=== PATIENT | male | born 1955 | race Two or more races ===

== ENCOUNTER 2021-04-05 04:56 | Day surgery (SDC) | payer OTHER ==
[2021-04-05 09:59] VITALS: TEMP 97.7
[2021-04-05 10:58] VITALS: BP 124/81; PULSE 96
== END 2021-04-05 10:58 | disposition home or self-care (01) ==
LOC: JASU-ENDO 04:56
PROVIDERS: ATTEND Internal Medicine Gastroenterology
PROC: 0DB68ZX Excision of Stomach, Via Natural or Artificial Opening Endoscopic, Diagnostic (ICD-10-PCS; principal; 2021-04-05 09:44)
DX: K29.50 Unspecified chronic gastritis without bleeding (principal); K44.9 Diaphragmatic hernia without obstruction or gangrene; Z98.84 Bariatric surgery status
CPT/HCPCS: 88305-TC; 88342-TC

== ENCOUNTER 2021-04-12 05:07 | Day surgery (SDC) | payer OTHER ==
[2021-04-11 08:16] VITALS: BMI 53.6
[2021-04-12 11:17] VITALS: TEMP 97.5
[2021-04-12 12:00] VITALS: BP 137/82; PULSE 69
== END 2021-04-12 12:12 | disposition home or self-care (01) ==
LOC: JASU-ENDO 05:07
PROVIDERS: ATTEND Internal Medicine Gastroenterology
PROC: 0DJD8ZZ Inspection of Lower Intestinal Tract, Via Natural or Artificial Opening Endoscopic (ICD-10-PCS; principal; 2021-04-12 10:15)
DX: Z12.11 Encounter for screening for malignant neoplasm of colon (principal); K57.30 Diverticulosis of large intestine without perforation or abscess without bleeding; K64.8 Other hemorrhoids; K62.7 Radiation proctitis; Z85.46 Personal history of malignant neoplasm of prostate

== ENCOUNTER 2023-01-23 14:05 | Emergency (ER) | payer OTHER ==
[2023-01-23 14:30] VITALS: BMI 47.8
[2023-01-23 16:41] LABS: BASO % 0.8 % (0-2.0); EOS % 2.3 % (0-4.5); HEMOGLOBIN 10.2 GM/dL (11.7-16.9); LYMPH % 12.3 % (8-40); MCH 24.8 pg (25.7-33.7); MCHC 32.8 g/dl (32.0-35.9); MEAN CELL VOLUME 75.7 fl (80-96); MEAN PLT VOLUME 6.5 fl (7.5-11.1); MONO % 9.3 % (3.8-10.2); NEUT % 75.3 % (42.8-82.8); PLATELET COUNT 366 10^3/uL (134-434); RBC 4.09 M/mm3 (4.00-5.60); RDW 16.6 % (11.9-15.9); WHITE BLOOD COUNT 8.5 K/mm3 (4.0-10.0)
[2023-01-23 17:01] LABS: POTASSIUM 3.9 mmol/L (3.5-5.1)
[2023-01-23 17:03] LABS: CALCIUM 8.8 mg/dL (8.5-10.1)
[2023-01-23 17:04] LABS: ALBUMIN 2.9 g/dl (3.4-5.0); BLOOD UREA NITROGEN 14.4 mg/dL (7-18)
[2023-01-23 17:07] LABS: CREATININE 0.6 mg/dL (0.55-1.3)
[2023-01-23 17:08] LABS: BILIRUBIN,TOTAL 0.2 mg/dL (0.2-1)
[2023-01-23 17:12] LABS: N-TERMINAL BNP 124.2 pg/ml (5-125)
[2023-01-23 18:48] VITALS: PULSE 66
[2023-01-23 19:59] VITALS: BP 108/64; RESP 19; TEMP 97.4
== END 2023-01-23 20:30 | disposition home or self-care (01) ==
LOC: JER 14:05
DX: R60.0 Localized edema (principal); M79.89 Other specified soft tissue disorders; R06.02 Shortness of breath; M79.669 Pain in unspecified lower leg
CPT/HCPCS: 36415; 71045-TC-FY; 80053; 83880; 84484; 85025; 93005; 93010; 93970-TC; 99285-25

== ENCOUNTER 2024-02-20 12:51 | Day surgery (SDC) | payer OTHER ==
[2024-02-20] MEDS ORDERED: ACETAMINOPHEN INJECTION 100 ML ONE ×2 (15:01→22:16)
[2024-02-20 15:04] LABS: BASO % 0.4 % (0-2.0); EOS % 0.4 % (0-4.5); HEMATOCRIT 39.3 % (35.4-49); LYMPH % 3.8 % (8-40); MCH 28.8 pg (25.7-33.7); MCHC 33.1 g/dl (32.0-35.9); MEAN CELL VOLUME 87.1 fl (80-96); MONO % 5.8 % (3.8-10.2); NEUT % 89.6 % (42.8-82.8); PLATELET COUNT 369 10^3/uL (134-434); RBC 4.51 M/mm3 (4.00-5.60); RDW 14.8 % (11.9-15.9); WHITE BLOOD COUNT 15.3 K/mm3 (4.0-10.0)
[2024-02-20] MEDS: ACETAMINOPHEN 1000 MG/100 ML BAG IVPB ONE (15:07)
[2024-02-20] MEDS: SODIUM CHLORIDE 1,000 ML IV STA (15:07)
[2024-02-20 15:39] LABS: POTASSIUM 4.2 mmol/L (3.5-5.1)
[2024-02-20 15:41] LABS: ALBUMIN 3.3 g/dl (3.4-5.0); BLOOD UREA NITROGEN 13.8 mg/dL (7-18); CALCIUM 9.6 mg/dL (8.5-10.1)
[2024-02-20 15:44] LABS: CREATININE 0.6 mg/dL (0.55-1.3)
[2024-02-20 15:46] LABS: BILIRUBIN,TOTAL 0.5 mg/dL (0.2-1); TOT PROT 6.8 g/dl (6.4-8.2)
[2024-02-20 16:12] LABS: URINE APPEARANCE CLOUDY; URINE BILIRUBIN NEGATIVE (NEGATIVE); URINE COLOR DK YELLOW; URINE GLUCOSE (UA) NEGATIVE (NEGATIVE); URINE KETONE NEGATIVE (NEGATIVE); URINE LEUK ESTERASE NEGATIVE (NEGATIVE); URINE NITRITE NEGATIVE (NEGATIVE); URINE PROTEIN NEGATIVE (NEGATIVE)
[2024-02-20] MEDS ORDERED: MAG HYDROX/AL HYDROX/SIMETH 30 ML UNIT-DOSE CUP ONE (19:41)
[2024-02-20] MEDS ORDERED: FAMOTIDINE 20 MG/50 ML IVPB 20 MG/50 ML MG IVPB ONE (19:41)
[2024-02-20] MEDS ORDERED: morphine SULFATE 4 MG/ML VIAL ONE (19:41)
[2024-02-20] MEDS: MAG HYDROX/AL HYDROX/SIMETH 30 ML UNIT-DOSE CUP PO ONE (19:45)
[2024-02-20] MEDS: FAMOTIDINE 20 MG/50 ML IVPB 20 MG/50 ML MG IVPB ONE (19:45)
[2024-02-20] MEDS: morphine CARPU-JECT 4 MG/1 ML DISP.SYRIN IVPUSH ONE (19:45)
[2024-02-20] MEDS ORDERED: PIPERACILLIN/TAZOB 4.5 GM 4.5 GM/100 ML BAG IVPB ONE (20:26)
[2024-02-20] MEDS: LACTATED RINGERS SOLUTION 1000 ML INFUS.BAG IV ONE (20:45)
[2024-02-20] MEDS: PIPERACILLIN/TAZOB 4.5 GM 4.5 GM in DEXTROSE 5%-WATER 100 ML IVPB ONE (20:45)
[2024-02-20] MEDS ORDERED: DOCUSATE SODIUM 100 MG CAPSULE (FP) PO PRN (21:10)
[2024-02-20] MEDS ORDERED: ONDANSETRON 4 MG/2 ML VIAL IVPUSH PRN (21:10)
[2024-02-20] MEDS ORDERED: MORPHINE SULFATE 2 MG/ML SYRINGE IVPUSH PRN (21:10)
[2024-02-20 21:22] LABS: INR 1.04 (0.83-1.09); PROTHROMBIN TIME (PATIENT) 11.7 SEC (9.7-13.0)
[2024-02-20 21:25] LABS: ACTIVATED PTT 33.1 SECONDS (25.2-36.5)
[2024-02-20] MEDS ORDERED: traMADol HCL 50 MG TABLET PO PRN (22:17)
[2024-02-20] MEDS: ACETAMINOPHEN 1000 MG/100 ML BAG IVPB SCH (22:22)
[2024-02-20] MEDS: INSULIN ASPART SLIDING SCALE (NOVOLOG) 1 VIAL SQ SCH (22:23)
[2024-02-20] MEDS ORDERED: morphine SULFATE 4 MG/ML VIAL IVPUSH PRN (22:39)
[2024-02-20] MEDS: SODIUM CHLORIDE 0.45% 1,000 ML IV SCH (23:58)
[2024-02-21] MEDS: PIPERACILLIN/TAZOB 4.5 GM 4.5 GM in DEXTROSE 5%-WATER 100 ML IVPB ONE (04:22)
[2024-02-21] MEDS: LEVOTHYROXINE NA 125 MCG TABLET (FP) PO SCH (06:16)
[2024-02-21] MEDS: TAMSULOSIN HCL 0.4 MG CAP PO SCH (08:17)
[2024-02-21] MEDS ORDERED: BUPIVACAINE HCL/PF 0.5% (5MG/ML) 10 ML VIAL ONE (08:41)
[2024-02-21] MEDS ORDERED: ROCURONIUM BROMIDE 50 MG/5 ML SYRINGE ONE (09:02)
[2024-02-21] MEDS ORDERED: PROPOFOL 20 ML ONE ×2 (09:02→09:46)
[2024-02-21] MEDS ORDERED: ONDANSETRON 4 MG/2 ML VIAL ONE (09:02)
[2024-02-21] MEDS ORDERED: LIDOCAINE HCL/PF 2% SDV 5ML VIAL ONE (09:02)
[2024-02-21] MEDS ORDERED: DEXAMETHASONE SOD PHOSPHATE 4 MG/1 ML VIAL ONE (09:02)
[2024-02-21] MEDS ORDERED: MIDAZOLAM HCL 2 MG/2 ML SINGLE DOSE VIAL ONE (09:03)
[2024-02-21] MEDS ORDERED: oxyCODONE HCL 5 MG TABLET PO PRN ×4 (09:23→11:25)
[2024-02-21] MEDS ORDERED: FENTANYL CITRATE/PF 50 MCG/ML VIAL IVPUSH PRN ×2 (09:23→11:25)
[2024-02-21] MEDS ORDERED: SEVOFLURANE 250 ML BTL ONE (09:33)
[2024-02-21] MEDS ORDERED: PIPERACILLIN/TAZOBACTAM 3.375 GM VIAL IVPB ONE (09:51)
[2024-02-21] MEDS: PIPERACILLIN/TAZOBACTAM 3.375 GM VIAL IVPB ONE (10:02)
[2024-02-21] MEDS: FERROUS SO4 325 MG TABLET (FP) PO SCH (10:04)
[2024-02-21] MEDS: BUMETANIDE 1 MG TABLET PO SCH (10:04)
[2024-02-21] MEDS: PIPERACILLIN/TAZOB 3.375 GM 3.375 GM in DEXTROSE 5%-WATER - 50 ML IVPB SCH ×3 (10:04→17:34)
[2024-02-21] MEDS: LOSARTAN POTASSIUM 50 MG TABLET PO SCH (10:04)
[2024-02-21] MEDS: FAMOTIDINE 20 MG TABLET PO SCH ×2 (10:04→21:47)
[2024-02-21 10:12] LABS: BASO % 0.4 % (0-2.0); EOS % 1.2 % (0-4.5); HEMATOCRIT 35.4 % (35.4-49); HEMOGLOBIN 11.9 GM/dL (11.7-16.9); LYMPH % 7.7 % (8-40); MCH 29.5 pg (25.7-33.7); MCHC 33.7 g/dl (32.0-35.9); MEAN CELL VOLUME 87.7 fl (80-96); MEAN PLT VOLUME 7.7 fl (7.5-11.1); MONO % 6.1 % (3.8-10.2); NEUT % 84.6 % (42.8-82.8); PLATELET COUNT 300 10^3/uL (134-434); RBC 4.03 M/mm3 (4.00-5.60); WHITE BLOOD COUNT 12.2 K/mm3 (4.0-10.0)
[2024-02-21] MEDS: BUPIVACAINE HCL/PF 0.5% (5MG/ML) 10 ML VIAL IJ ONE ×3 (10:12)
[2024-02-21 10:30] LABS: POTASSIUM 4.2 mmol/L (3.5-5.1)
[2024-02-21 10:34] LABS: BLOOD UREA NITROGEN 10.6 mg/dL (7-18)
[2024-02-21 10:38] LABS: CREATININE 0.5 mg/dL (0.55-1.3); PHOSPHOROUS 3.1 mg/dL (2.5-4.9)
[2024-02-21] MEDS ORDERED: SUGAMMADEX SODIUM 200 MG/2 ML VIAL ONE (10:56)
[2024-02-21] MEDS ORDERED: DOCUSATE SODIUM 100 MG CAPSULE (FP) PO PRN (11:25)
[2024-02-21] MEDS ORDERED: ONDANSETRON 4 MG/2 ML VIAL IVPUSH PRN (11:25)
[2024-02-21] MEDS: LACTATED RINGERS SOLUTION 1,000 ML IV SCH ×2 (13:01→13:15)
[2024-02-21] MEDS: SODIUM CHLORIDE 0.45% 1,000 ML IV SCH (13:02)
[2024-02-21] MEDS: PATIENT'S OWN MEDICATION (NON-FORMULARY) (Linaclotide 145 MCG Capsule) PO SCH (13:15)
[2024-02-21] MEDS: PATIENT'S OWN MEDICATION (NON-FORMULARY) (Lubiprostone [Amitiza] 24 MCG Capsule) PO SCH (13:15)
[2024-02-21] MEDS: PATIENT'S OWN MEDICATION (NON-FORMULARY) (Enzalutamide [Xtandi] 40 MG Capsule) PO SCH (13:15)
[2024-02-21] MEDS: morphine SULFATE 4 MG/ML VIAL IVPUSH PRN (13:45)
[2024-02-21] MEDS: ACETAMINOPHEN 1000 MG/100 ML BAG IVPB SCH (15:56)
[2024-02-21] MEDS: INSULIN ASPART SLIDING SCALE (NOVOLOG) 1 VIAL SQ SCH (16:41)
[2024-02-21] MEDS ORDERED: PIPERACILLIN/TAZOB 3.375 GM 3.375 GM in DEXTROSE 5%-WATER - 50 ML IVPB SCH (18:00)
[2024-02-21 18:42] VITALS: RESP 20
[2024-02-21] MEDS: ATORVASTATIN CA 20 MG TABLET (FP) PO SCH (21:46)
[2024-02-21] MEDS: PANTOPRAZOLE 40 MG TABLET PO SCH (21:46)
[2024-02-21] MEDS ORDERED: ATORVASTATIN CA 20 MG TABLET (FP) PO SCH (22:00)
[2024-02-21] MEDS ORDERED: PANTOPRAZOLE 40 MG TABLET PO SCH (22:00)
[2024-02-21 22:52] VITALS: BMI 49.3
[2024-02-22] MEDS: ACETAMINOPHEN 1000 MG/100 ML BAG IVPB ONE (00:48)
[2024-02-22] MEDS: LEVOTHYROXINE NA 125 MCG TABLET (FP) PO SCH (06:36)
[2024-02-22] MEDS ORDERED: PATIENT'S OWN MEDICATION (NON-FORMULARY) (Enzalutamide [Xtandi] 160 MG) PO SCH ×2 (10:00)
[2024-02-22] MEDS ORDERED: PATIENT'S OWN MEDICATION (NON-FORMULARY) (Lubiprostone [Amitiza] 24 MCG) PO SCH ×2 (10:00)
[2024-02-22] MEDS ORDERED: LINACLOTIDE 145 MCG PO SCH ×2 (10:00)
[2024-02-22] MEDS: ACETAMINOPHEN 1000 MG/100 ML BAG IVPB SCH (10:18)
[2024-02-22] MEDS: TAMSULOSIN HCL 0.4 MG CAP PO SCH (10:19)
[2024-02-22] MEDS: LOSARTAN POTASSIUM 50 MG TABLET PO SCH (10:19)
[2024-02-22] MEDS: FERROUS SO4 325 MG TABLET (FP) PO SCH (10:19)
[2024-02-22] MEDS: ENOXAPARIN NA (PORCINE) 40 MG/0.4 ML DISP.SYRIN SQ SCH (10:19)
[2024-02-22 10:35] LABS: BASO % 0.4 % (0-2.0); EOS % 2.3 % (0-4.5); HEMATOCRIT 35.1 % (35.4-49); HEMOGLOBIN 11.8 GM/dL (11.7-16.9); LYMPH % 5.3 % (8-40); MCH 29.7 pg (25.7-33.7); MCHC 33.7 g/dl (32.0-35.9); MEAN CELL VOLUME 88.1 fl (80-96); MEAN PLT VOLUME 7.3 fl (7.5-11.1); MONO % 7.3 % (3.8-10.2); NEUT % 84.7 % (42.8-82.8); PLATELET COUNT 318 10^3/uL (134-434); RBC 3.98 M/mm3 (4.00-5.60); RDW 14.9 % (11.9-15.9); WHITE BLOOD COUNT 10.5 K/mm3 (4.0-10.0)
[2024-02-22] MEDS: BUMETANIDE 1 MG TABLET PO SCH (10:46)
[2024-02-22 10:51] LABS: POTASSIUM 3.9 mmol/L (3.5-5.1)
[2024-02-22 11:01] LABS: CALCIUM 9.2 mg/dL (8.5-10.1)
[2024-02-22 11:02] LABS: ALBUMIN 2.9 g/dl (3.4-5.0); BLOOD UREA NITROGEN 7.3 mg/dL (7-18)
[2024-02-22 11:05] LABS: CREATININE 0.6 mg/dL (0.55-1.3)
[2024-02-22 11:06] LABS: BILIRUBIN,TOTAL 0.7 mg/dL (0.2-1); TOT PROT 6.5 g/dl (6.4-8.2)
[2024-02-22] MEDS ORDERED: KETOROLAC TROMETHAMINE 30 MG/1 ML VIAL IM PRN (12:03)
[2024-02-22] MEDS: oxyCODONE HCL 5 MG TABLET PO ONE ×2 (12:09→12:18)
[2024-02-22] MEDS ORDERED: oxyCODONE HCL 5 MG TABLET PO ONE (12:15)
[2024-02-22] MEDS: KETOROLAC TROMETHAMINE 30 MG/1 ML VIAL IVPUSH PRN (15:35)
[2024-02-22] MEDS ORDERED: PIPERACILLIN/TAZOB 3.375 GM 3.375 GM in DEXTROSE 5%-WATER - 50 ML IVPB SCH (18:00)
[2024-02-22] MEDS: oxyCODONE HCL 5 MG TABLET PO PRN (18:51)
[2024-02-23 07:40] LABS: HEMATOCRIT 32.7 % (35.4-49); HEMOGLOBIN 11.1 GM/dL (11.7-16.9); MCH 29.7 pg (25.7-33.7); MCHC 33.9 g/dl (32.0-35.9); MEAN CELL VOLUME 87.5 fl (80-96); MEAN PLT VOLUME 7.5 fl (7.5-11.1); PLATELET COUNT 261 10^3/uL (134-434); RBC 3.74 M/mm3 (4.00-5.60); RDW 14.9 % (11.9-15.9); WHITE BLOOD COUNT 8.7 K/mm3 (4.0-10.0)
[2024-02-23 07:55] LABS: POTASSIUM 3.8 mmol/L (3.5-5.1)
[2024-02-23 08:00] LABS: CALCIUM 8.8 mg/dL (8.5-10.1)
[2024-02-23 08:01] LABS: ALBUMIN 2.5 g/dl (3.4-5.0); BLOOD UREA NITROGEN 7.9 mg/dL (7-18)
[2024-02-23 08:04] LABS: CREATININE 0.4 mg/dL (0.55-1.3)
[2024-02-23 08:06] LABS: BILIRUBIN,TOTAL 0.5 mg/dL (0.2-1); TOT PROT 5.4 g/dl (6.4-8.2)
[2024-02-23] MEDS: AMOX TR/POT CLAV 875MG/125MG TABLETS (FP) PO SCH (08:54)
[2024-02-23 08:56] VITALS: BP 144/80; PULSE 72; TEMP 97.3
[2024-02-28] MEDS ORDERED: ERGOCALCIFEROL (VIT D2) 50,000 UNIT (1.25 MG) CAPSULE PO SCH ×2 (10:00)
== END 2024-02-23 11:59 | disposition home or self-care (01) ==
LOC: JER 12:51 → UNDOADMOB 20:29 → JERBED 20:29 → J6S 22:50 → JASUSAT 02-22 16:55 → J6S 02-22 16:55 → JASUSAT 02-23 11:59
PROVIDERS: ATTEND Internal Medicine
PROC: 0DTJ4ZZ Resection of Appendix, Percutaneous Endoscopic Approach (ICD-10-PCS; principal; 2024-02-22)
DX: K35.80 Unspecified acute appendicitis (principal)
CPT/HCPCS: 36415; 74177-TC; 80048; 80053; 81003; 82962; 83605; 83690; 83735; 84100; 84439; 84443; 85025; 85027; 85610; 85730; 86850; 86900; 86901; 87086; 88304-TC; 93005; 93010; 94010; 94760; 99285-25; J0131; Q9967

== ENCOUNTER → 2025-02-11 | Day surgery (SDC) | payer OTHER ==
[2025-02-09 12:25] VITALS: BMI 54.0
[~2025-02-11] MED LIST: ACETAMINOPHEN 500 MG TABLET (FP) PO PRN
[2025-02-11 12:09] VITALS: BP 150/84; PULSE 71; RESP 20; TEMP 97.3
== END | disposition home or self-care (01) ==
LOC: JASU-SURG 06:06
PROVIDERS: ATTEND Pain Medicine Pain Medicine
PROC: 01HY3MZ Insertion of Neurostimulator Lead into Peripheral Nerve, Percutaneous Approach (ICD-10-PCS; principal; 2025-02-11 11:20)
DX: G89.4 Chronic pain syndrome (principal)
CPT/HCPCS: 64555; C1778